=== PATIENT | female | born 1970 | race Hispanic/Latino ===

== ENCOUNTER 2021-06-19 08:52 | Outpatient (CLI) | payer OTHER ==
--- NOTE | 2021-06-19 10:26 | XRay Report ---
BILATERAL KNEE 1 VIEW(S) INDICATION / CLINICAL INFORMATION: M25.569 M54.9 COMPARISON: None available. FINDINGS: BONES / JOINT(S): No acute fracture or subluxation. Minimal joint space narrowing of the medial ning rtments bilaterally. SOFT TISSUES: No significant abnormality. ADDITIONAL FINDINGS: None. Signer Name: Buck Calixto MD Signed: 06/19/2021 10:21 AM Workstation Name: [id number]
--- NOTE | 2021-06-19 10:27 | XRay Report ---
LUMBAR SPINE 5 VIEWS INDICATION / CLINICAL INFORMATION: M25.569 M54.9. COMPARISON: None available. FINDINGS: VERTEBRAE: No acute fracture. No significant malalignment. DISC SPACES / FACET JOINTS:Mild multilevel degenerative changes. PARASPINAL SOFT TISSUES:No significant abnormality. ADDITIONAL FINDINGS: None. Signer Name: Buck Calixto MD Signed: 06/19/2021 10:22 AM Workstation Name: [employer] [id number]
== END 2021-06-19 08:53 | disposition home or self-care (01) ==
LOC: MAMMO 08:52
PROVIDERS: ATTEND Internal Medicine
DX: M17.0 Bilateral primary osteoarthritis of knee (principal); M47.817 Spondylosis without myelopathy or radiculopathy, lumbosacral region; N64.4 Mastodynia
CPT/HCPCS: 72100; 73565

== ENCOUNTER 2021-10-08 18:37 | Emergency (ER) | payer OTHER ==
[2021-10-08 18:46] VITALS: BP 128/66
== END 2021-10-09 23:25 | disposition left against medical advice (07) ==
LOC: ED 18:37
DX: S29.9XXA Unspecified injury of thorax, initial encounter (principal); Z53.21 Procedure and treatment not carried out due to patient leaving prior to being seen by health care provider; W19.XXXA Unspecified fall, initial encounter; Y93.89 Activity, other specified; Y92.89 Other specified places as the place of occurrence of the external cause; Y99.8 Other external cause status

== ENCOUNTER 2021-10-15 08:26 | Outpatient (CLI) | payer OTHER | END 2021-10-15 08:27 | disposition home or self-care (01) | LOC: MAMMO 08:26 | PROVIDERS: ATTEND Internal Medicine | DX: Z12.31 Encounter for screening mammogram for malignant neoplasm of breast (principal) | CPT/HCPCS: 77067 ==